=== PATIENT | male | born 1985 | race African-American/Black ===

== ENCOUNTER 2018-04-11 09:54 | Emergency (ER) | payer OTHER ==
[~2018-04-11] VITALS: Ht 175.3 cm; Wt 103.4 kg
[2018-04-11 10:40] LABS: PLATELET COUNT 533 K/uL (142-355)
[2018-04-11 10:45] LABS: POTASSIUM 3.5 mmol/L (3.6-5.2)
[2018-04-11 11:57] VITALS: BP 123/70; TEMP 98.1
== END 2018-04-11 11:57 | disposition home or self-care (01) ==
LOC: ED 09:54
PROVIDERS: Emergency Medicine
DX: J06.9 Acute upper respiratory infection, unspecified (principal); E87.6 Hypokalemia
CPT/HCPCS: 36415; 80053; 85027; 87502; 87651; 99283